=== PATIENT | male | born 1935 | race Hispanic/Latino ===

== ENCOUNTER → 2017-12-25 | Outpatient (CLI) | payer MEDICARE | END | disposition home or self-care (01) | LOC: RAH 13:27 | PROVIDERS: ATTEND Internal Medicine Hematology & Oncology | DX: Z23 Encounter for immunization (principal); C61 Malignant neoplasm of prostate; C79.51 Secondary malignant neoplasm of bone | CPT/HCPCS: 76870 ==

== ENCOUNTER 2018-07-12 10:22 | Observation (INO) | payer MEDICARE ==
[~2018-07-12] VITALS: Ht 165.1 cm; Wt 65.4 kg
[2018-07-12] MEDS ORDERED: TETANUS/DIPHTHERIA TOXOID [ADULT] 0.5 ML VIAL IM ONE (11:01)
[2018-07-12 12:11] LABS: BASOPHILS % (AUTO) 0.3 % (0.0-5.0); HEMATOCRIT 42.7 % (42-54); LYMPHOCYTES % (AUTO) 32.2 % (21.0-51.0); MEAN CORPUSCULAR HEMOGLOBIN 31.8 pg (27.0-33.0); MEAN CORPUSCULAR VOLUME 93.6 fL (79-99); MONOCYTES % (AUTO) 10.7 % (3.0-13.0); NEUTROPHILS % (AUTO) 55.8 % (40.0-77.0); PLATELET COUNT (AUTO) 215 K/uL (130-400); RED BLOOD CELL COUNT(AUTO) 4.56 MIL/uL (4.50-6.20); RED CELL DISTRIBUTION WIDTH 13.4 % (11.0-15.5); WHITE BLOOD COUNT (AUTO) 7.8 K/uL (4.8-10.8)
[2018-07-12 12:24] LABS: CREATININE 0.9 mg/dL (0.5-1.5); POTASSIUM 3.8 mmol/L (3.5-5.1)
[2018-07-12 12:29] LABS: ALBUMIN 3.3 g/dL (3.5-5.0); BILIRUBIN,TOTAL 0.7 mg/dL (0.2-1.0); TOTAL PROTEIN, SERUM 7.2 g/dL (6.0-8.3)
[2018-07-12 12:31] LABS: INR 0.96 (0.85-1.15); PARTIAL THROMBOPLASTIN TIME 28.7 SEC (26.3-35.5); PROTHROMBIN TIME 10.1 SEC (9.6-11.6)
[2018-07-12] MEDS ORDERED: OCTYL 2-CYANOACRYLATE 1 EACH TP ONE ×2 (13:09→13:25)
[2018-07-12 13:50] LABS: APPEARANCE,URINE Clear (CLEAR); BILIRUBIN,URINE Negative (NEGATIVE); COLOR,URINE Yellow (YELLOW); GLUCOSE, URINE (UA) Negative (NEGATIVE); KETONES,URINE Negative (NEGATIVE); LEUKOCYTE ESTERASE ,URINE Negative (NEGATIVE); NITRATE,URINE Negative (NEGATIVE); OCCULT BLOOD,URINE Negative (NEGATIVE); PH,URINE 6.5 (5.0-8.0); PROTEIN,URINE Negative (NEGATIVE)
[2018-07-12] MEDS ORDERED: ACETAMINOPHEN 325 MG TAB PO PRN ×2 (14:45)
[2018-07-12] MEDS ORDERED: ONDANSETRON HCL 4 MG/2 ML VIAL IV PRN (14:45)
[2018-07-12] MEDS ORDERED: HYDRALAZINE HCL 20 MG/ML VIAL IV PRN (14:45)
[2018-07-12 16:18] VITALS: BP 156/89
--- NOTE | 2018-07-12 16:45 | NUR ---
TEACHING: EXPLAINED THOROUGHLY TO PT THAT HE IS NOT TO GET OUT OF BED WITHOUT ASSIST AND HE COMMUNICATES UNDERSTANDING. NEPHEW AT [facility] STATES THERE WILL BE A FAMILY MEMBER WITH HIM AT ALL TIMES.
[2018-07-12] MEDS ORDERED: ENZA40CA PO (16:55)
[2018-07-12] MEDS ORDERED: MOXI3DRO12 OP (16:55)
[2018-07-12] MEDS ORDERED: PRED5DRO25 OP (16:55)
[2018-07-12] MEDS ORDERED: LOSA25TA41 PO (16:55)
[2018-07-12] MEDS ORDERED: KETO5DRO82 OP (16:55)
[2018-07-12] MEDS ORDERED: HYDR-4060 PO (16:55)
[2018-07-12] MEDS ORDERED: SIMV80TA91 PO (16:55)
[2018-07-12] MEDS ORDERED: ZOLP5TAB8 PO (16:55)
[2018-07-12] MEDS ORDERED: HONEY 1 APPL/ML TUBE TP SCH (17:00)
--- NOTE | 2018-07-12 17:00 | NUR ---
HX OF LT ARM HYPOTENSION: FAMILY STATES HE HAS ALWAYS HAD LOW BP IN LT ARM AND OFFICE USES RIGHT ARM. 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 IDENTIFIED RT CALF BEST B/P OPTION : B/P IN LEFT ARM = 76/49; LT CALF - 117/66; AND RT CALF 158/67.
--- NOTE | 2018-07-12 17:05 | NUR ---
[facility] consult Patient assessed as ordered. Patient with large skin tears extending from Rt wrist to upper arm. Multiple steri strips applied in ED. [facility] recommendations discussed with patient, family members and patient's nurse, Eileen COVARRUBIAS. Wound care to be implemented upon MD approval.
--- NOTE | 2018-07-12 17:30 | NUR ---
RT ARM DRSG CHANGED PER WOUND CARE ORDERS. PAINFUL FOR PT BUT TOLERATES WELL. NOTE ABD'S UTILIZED OVER 4X4 FOR DRAINAGE.
[2018-07-12] MEDS: SODIUM CHLORIDE 0.9% 1000ML 1,000 ML IV SCH (17:50)
[2018-07-12 19:28] VITALS: BP 136/59
[2018-07-12] MEDS: FAMOTIDINE 20MG TAB 20 MG TAB PO SCH (21:07)
[2018-07-12 23:45] VITALS: BP 136/68
[2018-07-12 23:46] VITALS: BP_SYST 172; BP_SYST 183; BP_DIAS 108; BP_DIAS 91
[2018-07-13 03:46] LABS: HEMATOCRIT 36.7 % (42-54); MEAN CORPUSCULAR HEMOGLOBIN 31.3 pg (27.0-33.0); MEAN CORPUSCULAR HGB CONC 33.9 g/dL (32.0-36.0); MEAN CORPUSCULAR VOLUME 92.2 fL (79-99); PLATELET COUNT (AUTO) 200 K/uL (130-400); RED BLOOD CELL COUNT(AUTO) 3.98 MIL/uL (4.50-6.20); RED CELL DISTRIBUTION WIDTH 13.1 % (11.0-15.5)
[2018-07-13 03:50] VITALS: BP 111/64
[2018-07-13 04:17] LABS: CREATININE 0.8 mg/dL (0.5-1.5); MAGNESIUM 1.8 mg/dL (1.80-2.40); PHOSPHORUS 1.9 mg/dL (2.5-4.9); POTASSIUM 3.5 mmol/L (3.5-5.1); THYROID STIMULATING HORMONE 1.08 uIU/mL (0.36-3.74)
[2018-07-13] MEDS: SODIUM CHLORIDE 0.9% 1000ML 1,000 ML IV SCH (04:27)
[2018-07-13 07:30] VITALS: BP 126/71
[2018-07-13 07:31] VITALS: BP 178/90
[2018-07-13 07:32] VITALS: BP 180/94
[2018-07-13] MEDS: FAMOTIDINE 20MG TAB 20 MG TAB PO SCH (08:59)
[2018-07-13] MEDS: NEUTRA-PHOS PACKET 1 EACH PO SCH ×3 (09:00→17:41)
[2018-07-13] MEDS ORDERED: LOSARTAN 50 MG TABLET PO SCH (09:00)
--- NOTE | 2018-07-13 11:00 | NUR ---
dressing to right arm cleaned with ns, medihoney and adaptic dressing with kerlix applied.
--- NOTE | 2018-07-13 11:07 | NUR ---
DC PLAN CALLED DR. CARTER OFFICE SAID NURSE ALREADY CALLED [facility]SE SPECIALIST TO SET UP APPOINTMENT. WILL CALL NURSE BACK. Addendum: 07/13/18 at 1108 by NATACHA SOTO RN CM Amended: Links added.
[2018-07-13 11:55] VITALS: BP 133/65
[2018-07-13 16:21] VITALS: BP 133/65
--- NOTE | 2018-07-13 17:55 | NUR ---
GIVEN DISMISSAL INSTRUCTIONS TO PATIENT AND HIS DAUGHTER. VERBALIZED UNDERSTANDING. REMOVED TELE PACK. REMOVED SALINE LOCK FROM LEFT ARM, IV SITE WITHOUT REDNESS NOTED. DRESSING TO RIGHT ARM CLEAN AND DRY. REPORTED OFF TO PRIMARY NURSE, EZ.
== END 2018-07-13 18:43 | disposition home or self-care (01) ==
LOC: EDH 10:22 → EDHIP 14:41 → 2AH 15:53
PROVIDERS: ADMIT Internal Medicine; ATTEND Internal Medicine
DX: I95.9 Hypotension, unspecified (principal); E78.00 Pure hypercholesterolemia, unspecified; E78.5 Hyperlipidemia, unspecified; I10 Essential (primary) hypertension; C61 Malignant neoplasm of prostate; C79.51 Secondary malignant neoplasm of bone; Z85.46 Personal history of malignant neoplasm of prostate; Z98.42 Cataract extraction status, left eye; Z79.899 Other long term (current) drug therapy
CPT/HCPCS: 12002; 36415 ×2; 70450; 71045; 73080; 80048; 80053; 81003; 83735; 83880; 84100; 84443; 84484; 85025; 85027; 85610; 85730; 90471; 90714; 93005; 96360; 96361 ×2; 97116; 97161; 99284; G0378 ×28; G8978; G8979; G8980; G8981; G8982; G8983; J7030 ×2

== ENCOUNTER → 2020-09-21 | Outpatient (CLI) | payer MEDICARE ==
[~2020-09-21] MED LIST: ENZA40CA PO; KETO5DRO82 OP; LOSA25TA41 PO; MOXI3DRO12 OP; PRED5DRO25 OP; SIMV80TA91 PO; ZOLP5TAB8 PO
== END | disposition home or self-care (01) ==
LOC: SHCH 09:06
PROVIDERS: ATTEND Internal Medicine Cardiovascular Disease
DX: I48.92 Unspecified atrial flutter (principal)
CPT/HCPCS: 93306; 93356

== ENCOUNTER → 2022-09-09 | Outpatient (CLI) | payer MEDICARE ==
[2022-09-09 16:12] LABS: BASOPHILS % (AUTO) 0.4 % (0.0-5.0); HEMATOCRIT 45.1 % (42-54); LYMPHOCYTES % (AUTO) 34.6 % (21.0-51.0); MEAN CORPUSCULAR HEMOGLOBIN 30.3 pg (27.0-33.0); MEAN CORPUSCULAR HGB CONC 31.3 g/dL (32.0-36.0); MEAN CORPUSCULAR VOLUME 96.8 fL (79-99); MONOCYTES % (AUTO) 10.7 % (3.0-13.0); NEUTROPHILS % (AUTO) 52.7 % (40.0-77.0); PLATELET COUNT (AUTO) 248 K/uL (130-400); RED BLOOD CELL COUNT(AUTO) 4.66 MIL/uL (4.50-6.20); RED CELL DISTRIBUTION WIDTH 13.6 % (11.0-15.5); WHITE BLOOD COUNT (AUTO) 7.9 K/uL (4.8-10.8)
[2022-09-09 16:33] LABS: ALBUMIN 3.7 g/dL (3.5-5.0); CREATININE 0.9 mg/dL (0.5-1.5); POTASSIUM 4.2 mmol/L (3.5-5.1)
== END | disposition home or self-care (01) ==
LOC: LAB 11:55
PROVIDERS: ATTEND Internal Medicine Cardiovascular Disease
DX: E78.5 Hyperlipidemia, unspecified (principal); Z79.01 Long term (current) use of anticoagulants
CPT/HCPCS: 36415; 80053; 80061; 85025